=== PATIENT | female | born 1945 | race Hispanic/Latino ===

== ENCOUNTER 2016-11-25 09:46 | Emergency (ER) | payer MEDICARE, OTHER ==
[~2016-11-25] VITALS: Ht 152.4 cm; Wt 68.3 kg
[2016-11-25] MEDS: NITROGLYCERIN 0.4 MG SUBL TABLET SL PRN ×3 (10:00→10:10)
[2016-11-25] MEDS ORDERED: METOPROLOL 5 MG/5 ML VIAL IV STA (10:07)
[2016-11-25] MEDS ORDERED: METOPROLOL 5 MG/5 ML VIAL As Ordered ONE (10:08)
[2016-11-25] MEDS ORDERED: METOPROLOL TART 25 MG TABLET As Ordered ONE (10:10)
[2016-11-25 10:11] LABS: BASO # 0.1 10^3/uL (0.0-0.2); BASO % 0.5 % (0.0-1.0); EOS # 0.2 10^3/uL (0.0-0.50); EOS % 1.5 % (0.0-3.0); IMMATURE GRANULOCYTE % 0.3 % (0-0); LYMPH # 4.3 10^3/uL (1.5-4.5); LYMPH % 29.2 % (24.0-44.0); MEAN CORPUSCULAR HEMOGLOBIN 28.8 pg (27.0-33.0); MEAN CORPUSCULAR HGB CONC 31.7 g/dl (32.0-36.5); MEAN CORPUSCULAR VOLUME 90.8 fl (80.0-96.0); MONO # 1.3 10^3/uL (0.0-0.8); MONO % 8.7 % (0.0-5.0); NEUTROPHILS # 8.9 10^3/uL (1.8-7.7); NEUTROPHILS % 59.8 % (36.0-66.0); PLATELET COUNT, AUTOMATED 244 10^3/uL (150-450); RED CELL DISTRIBUTION WIDTH 14.1 % (11.5-14.5); WHITE BLOOD COUNT 14.9 10^3/uL (4.0-10.0)
[2016-11-25] MEDS ORDERED: METOPROLOL TART 25 MG TABLET PO ONE (10:15)
[2016-11-25 10:39] LABS: ANION GAP 9 MEQ/L (8-16); BLOOD UREA NITROGEN 17 MG/DL (7-18); CALCIUM LEVEL 9.2 MG/DL (8.8-10.2); CARBON DIOXIDE LEVEL 27 MEQ/L (21-32); CHLORIDE LEVEL 103 MEQ/L (98-107); CREATININE FOR GFR 0.93 MG/DL (0.55-1.02); GLOMERULAR FILTRATION RATE > 60.0 (>39); GLUCOSE, FASTING 251 MG/DL (83-110); SODIUM LEVEL 139 MEQ/L (136-145)
[2016-11-25] MEDS ORDERED: FUROSEMIDE 100 MG/10 ML VIAL (J1940) IV ONE (10:45)
[2016-11-25] MEDS ORDERED: POTASSIUM CHL PWD 20 MEQ PACKET As Ordered ONE (10:55)
[2016-11-25] MEDS ORDERED: POTASSIUM CHLORIDE 10 MEQ SR TABLET PO ONE (11:00)
[2016-11-25] MEDS ORDERED: POTASSIUM CHL PWD 20 MEQ PACKET PO ONE (11:00)
--- NOTE | 2016-11-25 11:00 | REP ---
PORTABLE CHEST: No comparison. AP view of the chest is performed. There is vascular congestion and diffuse infiltrates particularly in the lung bases, with probably bilateral effusions. Findings are most consistent with congestive heart failure and pulmonary edema. There is calcification and tortuosity of the thoracic aorta. Visualized osseous structures appear intact. IMPRESSION: Findings most consistent with congestive heart failure and pulmonary edema. Signed by Chuy Ba MD 11/25/2016 05:21 P
[2016-11-25] MEDS ORDERED: HEPARIN DRIP 25,000 UNITS in APPROPRIATE DILUENT 1 EA IV SCH (11:02)
[2016-11-25] MEDS ORDERED: NITROGLYCERIN 2% OINT 1 GM *U/D* PKT As Ordered ONE (11:04)
[2016-11-25] MEDS ORDERED: HEPARIN SOD (PORCINE) 5000 UNITS/ML VIAL As Ordered ONE (11:04)
[2016-11-25] MEDS ORDERED: HEPARIN 25,000 UNITS/250 ML D5W BAG (100 UNITS/ML) As Ordered ONE (11:04)
[2016-11-25] MEDS ORDERED: NITROGLYCERIN 2% OINT 1 GM *U/D* PKT TOP ONE (11:15)
[2016-11-25] MEDS ORDERED: HEPARIN SOD (PORCINE) 5000 UNITS/ML VIAL IV ONE (11:15)
[2016-11-25] MEDS ORDERED: MORPHINE 2 MG/ML 1ML SYRINGE As Ordered ONE (11:27)
[2016-11-25] MEDS ORDERED: ONDANSETRON 4MG/2ML VIAL (J2405) As Ordered ONE (11:27)
[2016-11-25] MEDS ORDERED: ONDANSETRON 4MG/2ML VIAL (J2405) IV ONE (11:30)
[2016-11-25] MEDS ORDERED: MORPHINE 2 MG/ML 1ML SYRINGE IV ONE (11:30)
[2016-11-25 11:46] VITALS: BP 136/78
--- NOTE | 2016-11-26 09:19 | ECGEPIP ---
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
--- NOTE | 2016-11-26 09:20 | ECGEPIP ---
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
== END 2016-11-25 11:50 | disposition short-term general hospital (02) ==
LOC: EDBD 09:46 → M ED 09:46
DX: I21.3 ST elevation (STEMI) myocardial infarction of unspecified site (principal); I48.91 Unspecified atrial fibrillation; E87.6 Hypokalemia; R00.0 Tachycardia, unspecified; R94.31 Abnormal electrocardiogram [ECG] [EKG]; J81.0 Acute pulmonary edema
CPT/HCPCS: 71010; 80048; 82550; 82553; 83880; 84443; 84484; 85025; 93005; 93041; 94760; 96374; 96375; 99285; J1940; J2405